=== PATIENT | female | born 1945 | race Caucasian/White ===

== ENCOUNTER 2022-01-31 07:37 | Outpatient (CLI) | payer MEDICARE, SELFPAY ==
--- NOTE | 2022-01-31 08:00 | CRLHL7_ITS ---
For Patients: As a result of the Century Cures Act, medical imaging exams and procedure reports are released immediately into your electronic medical record. You may view this report before your referring provider. If you have questions, please contact your health care provider. INDICATION: Left-sided neck mass. TECHNIQUE: CT of the neck soft tissues performed with IV contrast. Contrast: 90 cc of Isovue 370. COMPARISON: None available at this institution. FINDINGS: A palpable marker was placed on the topogram. At the level of the marker there is a rim enhancing central hypodense lesion noted anteriorly along the neck strap musculature, anterior and lateral to the thyroid cartilage measuring 9 mm (series 3, image 47). The right thyroid lobe is surgically absent. Left thyroid lobe is present, with multiple subcentimeter nodules. The nasopharynx, oropharynx and hypopharynx appear unremarkable. The supraglottic, glottic and infraglottic spaces are preserved. The parotid and submandibular glands appear unremarkable. The thyroid gland is normal. The visualized major vascular structures appear intact. The visualized intracranial components appear grossly intact. Visualized orbits and contents appear unremarkable. Mild paranasal sinus mucosal disease. Scattered subsegmental atelectasis. Moderate cervical spondylosis. IMPRESSION: Indeterminate nodular lesion along the left anterior neck strap musculature underlying the region of palpable marker. Left thyroid lobe with multiple subcentimeter nodules. Correlate with prior right thyroid lobectomy history and dedicated evaluation with targeted ultrasound is recommended with consideration for tissue sampling as indicated. Please note that all CT scans at this facility use dose modulation, iterative reconstruction, and/or weight-based dosing when appropriate to reduce radiation dose to as low as reasonably achievable. Dictated by Pravin De Leon MD @ 01/31/2022 11:03:21 AM (Electronically Signed)
[2022-01-31 08:11] LABS: Creatinine* 0.7 mg/dL (0.5-1.5); Estimated Glomerular Filt Rate 89 ml/min
== END 2022-01-31 07:38 | disposition home or self-care (01) ==
LOC: CT 07:39
PROVIDERS: PCP Internal Medicine; Visit Provider Internal Medicine
DX: R22.1 Localized swelling, mass and lump, neck (principal); E04.1 Nontoxic single thyroid nodule
CPT/HCPCS: 36415; 70491; 82565; Q9967

== ENCOUNTER 2022-02-03 10:22 | Outpatient (CLI) | payer MEDICARE, SELFPAY ==
--- NOTE | 2022-02-03 10:45 | CRLHL7_ITS ---
For Patients: As a result of the Cures Act, medical imaging exams and procedure reports are released immediately into your electronic medical record. You may view this report before your referring provider. If you have questions, please contact your health care provider. INDICATION: Left neck lump. Previous right thyroidectomy. TECHNIQUE: Directed soft tissue ultrasound of both sides of the neck. COMPARISON: Correlation is made with a contrast-enhanced neck CT January 31, 2022. FINDINGS: Within the left neck there is a 1.5 x 0.6 x 1.1 cm palpable nodule which appears to reflect a lymph node. This may be reactive. There is a 2nd adjacent smaller lymph node measuring 1.2 x 0.6 x 0.6 cm. There is a 3rd lymph node more inferiorly measuring 2.0 x 0.4 x 0.7 cm. For comparison, within the right neck there is a 2.4 x 0.8 x 1.8 cm mildly enlarged right neck lymph node likely reactive. IMPRESSION : Small left-sided neck lymph nodes the largest measuring up to 1.5 cm. Larger 2.4 cm right neck lymph node. These may all be reactive/within normal limits. Dictated by Cesar Mahajan MD @ 02/03/2022 11:41:15 AM (Electronically Signed)
== END 2022-02-03 10:23 | disposition home or self-care (01) ==
LOC: US 10:23
PROVIDERS: PCP Internal Medicine; Visit Provider Internal Medicine
DX: M54.2 Cervicalgia (principal); R59.0 Localized enlarged lymph nodes
CPT/HCPCS: 76536

== ENCOUNTER 2022-02-07 08:29 | Outpatient (CLI) | payer MEDICARE, SELFPAY | END 2022-02-07 08:30 | disposition home or self-care (01) | LOC: OP CLINIC 08:30 | PROVIDERS: PCP Internal Medicine; Visit Provider Surgery | DX: R19.5 Other fecal abnormalities (principal); K63.5 Polyp of colon; K57.30 Diverticulosis of large intestine without perforation or abscess without bleeding | CPT/HCPCS: 45380; 45385; 88305; 99153; J2250; J3010 ==

== ENCOUNTER 2022-03-10 14:53 | Outpatient (CLI) | payer MEDICARE, SELFPAY ==
[2022-03-10 16:46] LABS: Chloride* 104 mmol/L (96-114)
[2022-03-10 16:47] LABS: Potassium* 4.2 mmol/L (3.6-5.1); Sodium* 142 mmol/L (135-149)
[2022-03-10 16:49] LABS: Creatinine* 0.9 mg/dL (0.5-1.5); Estimated Glomerular Filt Rate 66 ml/min
[2022-03-10 16:50] LABS: Blood Urea Nitrogen* 23 mg/dL (7-30); Calcium* 10.3 mg/dL (8.4-10.6); Carbon Dioxide* 31 mmol/L (20-32); Glucose* 112 mg/dL (60-115)
== END 2022-03-10 14:54 | disposition home or self-care (01) ==
PROVIDERS: PCP Internal Medicine; Visit Provider Internal Medicine
DX: I10 Essential (primary) hypertension (principal)
CPT/HCPCS: 80048

== ENCOUNTER 2023-05-19 09:05 | Outpatient (CLI) | payer MEDICARE, SELFPAY | END 2023-05-19 09:06 | disposition home or self-care (01) | PROVIDERS: PCP Internal Medicine; Referring Provider Internal Medicine; Visit Provider Internal Medicine | DX: E78.5 Hyperlipidemia, unspecified (principal); I10 Essential (primary) hypertension | CPT/HCPCS: 80048; 80061 ==

== ENCOUNTER 2023-06-19 08:41 | Outpatient (CLI) | payer MEDICARE, SELFPAY | END 2023-06-19 08:42 | disposition home or self-care (01) | LOC: NFLDREF 06-21 07:27 | PROVIDERS: PCP Internal Medicine; Referring Provider Internal Medicine; Visit Provider Internal Medicine | DX: I10 Essential (primary) hypertension (principal) | CPT/HCPCS: 80048 ==

== ENCOUNTER 2024-04-01 07:30 | Outpatient (RCR) | payer MEDICARE, SELFPAY ==
--- NOTE | 2024-03-04 11:51 | PT.OPEX ---
[facility] PT [facility] Outpatient Eval Start: 02/26/24 12:56 Freq: Status: Active Protocol: Document 03/04/24 07:12 MLS (Rec: 03/04/24 11:49 MLS [id number]) E-signed By Mikaela Arroyo DPT Physical Therapy Outpatient Evaluation Insurance Information Recert Due Date 06/01/24 Insurance Name Medicare B,[employer] Medical Diagnosis M79.18 left buttock pain Treating Diagnosis Glute stretching and strengthening program Referring MD Dr. Antonio Subjective Subjective Patient is a 78 year old female who presents to physical therapy with signs and symptoms consistent with left buttock pain. She states that in August she was picking peas and she had pain in the left lower buttock and back of her thigh. She states that she went and saw her physician and was started on 1800 mg ibuprofen per day for two weeks. She states that she also has some pain when she drives on a firm surface. She states that she has some pain when she bends over. No complaints of numbness or tingling. Aggravating factors include: nothing. Alleviating factors include: ibuprofen. Significant past medical history includes arthritis. Patient would like to achieve less pain through physical therapy sessions. Pain Comments Today: 1-2/10 on a 0-10 pain scale with 10 = extreme pain At its worst: 7/10 At its best: 1/10 Current Work Status Retired Precautions Weight Bearing Status Full Weight Bearing Therapy Limitations/Systems Review Not Limited Objective Other/Pertinent Objective LUMBAR ROM Flexion: to mid harrison Extension: WNL Right Sidebend: to knee Left Sidebend: to knee Right Rotation: WNL Left Rotation: WNL LE MMT Hip flexion: R 4+/5 L 4+/5 Hip Extension: R 4+/5 L 4+/5 Hip abduction: R 4/5 L 4/5 Knee extension: R 4+/5 L 4+/5 Knee Flexion: R 4+/5 L 4+/5 Dorsiflexion/heel walk: R 4+/5 L 4+/5 Plantarflexion/toe walk: R 4+/ 5 L 4+/5 JOINT MOBILITY/PALPATION Tenderness with palpation of proximal left hamstring and IT -band SPECIAL TESTS -Quadrant test: negative -Single leg stance: negative -Slump test: negative -Straight leg raise: negative -Crossed straight leg raise: negative SI/HIP -YUNI: negative -FADIR: negative TX: Access Code: [email or web address] URL: [email or web address] Date: 03/04/2024 Prepared by: Mikaela Arroyo Exercises - Supine Hamstring Stretch - 1 x daily - 7 x weekly - 3 sets - 10 reps - Seated Hamstring Stretch - 1 x daily - 7 x weekly - 3 sets - 10 reps - Supine ITB Stretch - 1 x daily - 7 x weekly - 3 sets - 10 reps - ITB Stretch at Wall - 1 x daily - 7 x weekly - 3 sets - 10 reps - Supine Figure 4 Piriformis Stretch - 1 x daily - 7 x weekly - 3 sets - 10 reps Assessment Assessment/Impression Pt is a 78 year old female who presents with concerns of left buttock pain. Patient also has notable objective findings including limited ROM , tenderness to palpation, and decreased strength which are also likely contributing to the problem. Patient is a good candidate for skilled therapy to target deficits described above. Skilled PT intervention is necessary for use of therapeutic exercise manual therapy, neuromuscular re- education, gait training, and therapeutic activity. Functional impairments include difficulty with: standing, walking, sleeping, exercising and ADLs. See appropriate sections of PT eval for complete list of goals and POC . D/C plan and criteria is for pt to achieve the goals as listed below or until max rehab potential is met. Pt was agreeable with plan of care and goals established. Primary Functional Limitations standing walking exercising ADLs sleeping Plan of Care Rehabilitation Potential Good Physical Therapy Goals Within 10-12 weeks: 1.Pt will demonstrate independence in performance of home exercise program with the use of video and/or handouts in order to optimize functional mobility and reduce risk for re-injury. 2.Pt will demonstrate consistent HEP compliance to ensure progress in reaching established goals during course of care. 3.Patient will be able to grocery shop for up to 30 minutes without pain. 4.Patient will report pain levels <2/10 with all activities in order to improve functional mobility at home, work and during functional leisure activities. 5.Patient is able to sleep without waking more than one time due to pain in a 6-8 hour time frame. 6.Patient will be able to walk up to one mile without pain. 7.Pt will be able to ascend/ descend 1 flight of stairs in order to perform ADLs pain free. Coordination/Communication With Referral Source Treatment Plan/Direct Interventions Joint Mobilization,Manual Therapy,Neuromuscular Re-ed, Therapeutic Activities, Therapeutic Exercises Patient Will Be Discharged From Therapy Independently Progressing Evaluation Billing Untimed Code Treatment Minutes 30 Complexity Low Certification Information Provider Signature Required Yes Provider Signature Shows Agreement With POC & Medical Necessity Physician NPI Number Write NPI# Here Physician Comment/Change : Physician Signature & Date Requested Please Sign/Date Here
== END 2024-07-22 09:37 | disposition home or self-care (01) ==
PROVIDERS: PCP Internal Medicine; Visit Provider Internal Medicine
DX: M79.18 Myalgia, other site (principal); Z51.89 Encounter for other specified aftercare
CPT/HCPCS: 97110; 97140; 97161

== ENCOUNTER 2024-06-10 08:48 | Outpatient (CLI) | payer MEDICARE, SELFPAY | END 2024-06-10 08:49 | disposition home or self-care (01) | LOC: NFLDREF 06-11 05:22 | PROVIDERS: PCP Internal Medicine; Referring Provider Internal Medicine; Visit Provider Internal Medicine | DX: I10 Essential (primary) hypertension (principal) | CPT/HCPCS: 80048 ==

== ENCOUNTER 2024-06-19 07:37 | Outpatient (CLI) | payer MEDICARE, SELFPAY | END 2024-06-19 07:38 | disposition home or self-care (01) | LOC: RAD 07:38 | PROVIDERS: PCP Internal Medicine; Visit Provider Internal Medicine | DX: R01.1 Cardiac murmur, unspecified (principal); I51.7 Cardiomegaly; I35.1 Nonrheumatic aortic (valve) insufficiency; I34.0 Nonrheumatic mitral (valve) insufficiency; I07.1 Rheumatic tricuspid insufficiency | CPT/HCPCS: 93306 ==

== ENCOUNTER 2025-03-03 07:05 | Outpatient (CLI) | payer MEDICARE, SELFPAY ==
--- NOTE | 2025-03-03 08:44 | P.ANES_ITS ---
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
--- NOTE | 2025-03-03 08:44 | W.ANESCHARGE ---
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
--- NOTE | 2025-03-03 08:50 | P.ANES_ITS ---
Anesthesia Charges Start Date/Time Anesthesia Start Date: 03/03/25 Anesthesia Start Time: 08:10 Stop Date/Time Anesthesia Stop Date: 03/03/25 Anesthesia Stop Time: 08:40 Summary Extremes of Age - Over 70 or under 1: MDA Coding CPT Codes CPT Codes: ANES LWR INTST NDSC NOS - [id number] ([id number]) P2 - PATIENT W/MILD SYST DISEASE, QK - BARREL RIFLER BROACH 2-4 CNCRNT ANES PROC, QX - DISC PAD KNOCKOUT WORKER SVC W/ MD MED DIRECTION Additional Codes: Summary - Extremes of Age - Over 70 or under 1: MDA ([id number])
--- NOTE | 2025-03-03 08:50 | W.ANESCHARGE ---
Anesthesia Charges Start Date/Time Anesthesia Start Date: 03/03/25 Anesthesia Start Time: 08:10 Stop Date/Time Anesthesia Stop Date: 03/03/25 Anesthesia Stop Time: 08:40 Summary Extremes of Age - Over 70 or under 1: MDA Coding CPT Codes CPT Codes: ANES LWR INTST NDSC NOS - [id number] ([id number]) P2 - PATIENT W/MILD SYST DISEASE, QK - JOURNEY LINEMAN 2-4 CNCRNT ANES PROC, QX - ANIMAL CARETAKER SVC W/ MD MED DIRECTION Additional Codes: Summary - Extremes of Age - Over 70 or under 1: MDA ([id number])
== END 2025-03-03 07:06 | disposition home or self-care (01) ==
LOC: OP CLINIC 07:06
PROVIDERS: PCP Internal Medicine; Visit Provider Surgery
DX: D12.3 Benign neoplasm of transverse colon (principal); K57.30 Diverticulosis of large intestine without perforation or abscess without bleeding; Z86.0100 Personal history of colon polyps, unspecified; Z98.890 Other specified postprocedural states
CPT/HCPCS: 00811; 45380; 45385; 99100; J2704